=== PATIENT | female | born 1990 | race American Indian/Alaskan Native ===

== ENCOUNTER 2017-03-15 08:56 | Outpatient (CLI) | payer MEDICAID | END 2017-03-15 12:10 | disposition home or self-care (01) | LOC: LAB 08:56 → TRG 11:24 → LAB 12:10 | PROVIDERS: ATTEND Obstetrics & Gynecology | DX: O36.0130 Maternal care for anti-D [Rh] antibodies, third trimester, not applicable or unspecified (principal); Z3A.28 28 weeks gestation of pregnancy | CPT/HCPCS: 86850; 86900; 86901; 96372; J2790 ==

== ENCOUNTER 2017-06-08 10:38 | Inpatient (IN) | payer OTHER, MEDICAID ==
[2017-06-08] MEDS ORDERED: ePHEDrine SULFATE IV PRN ×2 (11:46→19:34)
[2017-06-08] MEDS ORDERED: MINERAL OIL PO PRN (11:46)
[2017-06-08] MEDS ORDERED: POLYCILLIN/NS 2 GM/100 ML 2 GM/100 ML BAG IV ONE (11:46)
[2017-06-08] MEDS ORDERED: BRETHINE SUB-Q PRN (11:46)
[2017-06-08] MEDS ORDERED: PITOCin/NS 20 UNIT/1000ML DRIP 20 UNITS/1,000 ML BAG IV SCH (12:00)
--- NOTE | 2017-06-08 12:06 | History and Physical Report ---
History of Present Illness Date of examination: 06/08/17 Date of admission: 06/08/17 11:39 Chief complaint: Contractions since yesterday History of present illness: Patient reports contractions since yesterday afternoon; she states this morning they became more regular every 5 minutes. Patient states her membranes were stripped in the office 3 days ago. Patient reports light pink spotting when she wipes. She denies bleeding or leaking of fluid. Patient reports active movement. Past History Past Medical History: no pertinent history Past Surgical History: no surgical history [employer] History: denies: herpes Family/Genetic History: hypertension Social history: single, lives with family, full code. denies: smoking, alcohol abuse, prescription drug abuse, IV drug use - Obstetrical History Expected Date of Delivery: 06/05/17 Actual Gestation: 40 Week(s) 3 Day(s) : 1 Para: 0 Hx # Term Pregnancies: 1 Number of Pregnancies: 0 Spontaneous Abortions: 0 Induced : 0 Number of Living Children: 0 Medications and Allergies Allergies Allergy/AdvReac Type Severity Reaction Status Date / Time No Known Allergies Allergy Unverified 03/15/17 11:29 Home Medications Medication Instructions Recorded Confirmed Last Taken Type Pnv No.95/Ferrous Fum/Folic AC 1 each PO DAILY 03/15/17 03/15/17 03/15/17 History [ Caplet] Active Meds: Active Medications Ephedrine Sulfate (Ephedrine Sulfate) 10 mg IV Q2M PRN PRN Reason: Hypotension Ampicillin Sodium (Polycillin/Ns 2 Gm/100 Ml) 2 gm in 100 mls @ 100 mls/hr IV ONCE ONE PRN Reason: Protocol Stop: 06/08/17 12:45 Lactated Ringer's (Lactated Ringers) 1,000 mls @ 125 mls/hr IV DIRECT VAL Oxytocin/Sodium Chloride (Pitocin/Ns 20 Unit/1000ml Drip) 20 units in 1,000 mls @ 125 mls/hr IV DIRECT VAL Ampicillin Sodium (Polycillin/Ns 1 Gm/50 Ml) 1 gm in 50 mls @ 100 mls/hr IV Q4HR VAL PRN Reason: Protocol Mineral Oil (Mineral Oil) 30 ml PO QHS PRN PRN Reason: Constipation Terbutaline Sulfate (Brethine) 0.25 mg SUB-Q ONCE PRN PRN Reason: Hyperstimulation/Hypertonicity Review of Systems All systems: negative (contractions) - Vital Signs Vital signs: Vital Signs Temp Pulse Resp BP Pulse Ox 98.6 F 105 H 22 124/77 98 06/08/17 11:05 06/08/17 11:05 06/08/17 11:05 06/08/17 11:05 06/08/17 11:05 Temp Pulse Resp BP Pulse Ox 98.6 F 103 H 22 124/77 98 06/08/17 11:05 06/08/17 11:25 06/08/17 11:05 06/08/17 11:11 06/08/17 11:25 - Physical Exam Abdomen: Positive: normal appearance, soft. Negative: distention, tenderness, guarding, rigidity Genitourinary (Female): Positive: normal external genitalia, normal perenium. Negative: perineal/vulvar lesions (no lesions seen on careful exam with bright light upon admission) Vagina: Positive: normal moisture Uterus: Positive: enlarged. Negative: tender Anus/Rectum: Positive: normal perianal skin Extremities: Positive: normal. Negative: tenderness, edema - Obstetrical FHR: category 1 Uterine Contraction Monitor Mode: External Cervical Dilatation: 4 Cervical Effacement Percentage: 70 station: -3 Uterine Contraction Frequency (min): q 4 min Uterine Contraction Pattern: Regular Uterine Contraction Intensity: Moderate Results All other labs normal. Assessment and Plan A: at 40 weeks, 3 days gestation. Labor. No records available. P: Admit. GBS prophylaxis. Anticipate .
[2017-06-08 12:12] LABS: Hematocrit 30.4 % (30.3-42.9); Hemoglobin 10.2 gm/dl (10.1-14.3); Mean Corpuscular HGB Conc 34 % (30-34); Mean Corpuscular Hemoglobin 27 pg (28-32); Mean Corpuscular Volume 80 fl (79-97); Platelet Count 247 K/mm3 (140-440); Red Blood Count 3.82 M/mm3 (3.65-5.03); Red Cell Distribution Width 17.3 % (13.2-15.2); White Blood Count 8.6 K/mm3 (4.5-11.0)
[2017-06-08] MEDS: LACTATED RINGERS 1,000 ML IV SCH ×3 (13:56→18:55)
--- NOTE | 2017-06-08 14:15 | Event Note ---
Date: 06/08/17 SVE 5.5/90/-4/BBOW. Reassuring heart rate tracing. Contractions every 2-3 minutes, moderate to palpation. Uterus palpates soft between contractions. Sat patient in squatting position to help with descent. Vital signs stable.
--- NOTE | 2017-06-08 16:09 | Event Note ---
Date: 06/08/17 At last cervical exam, cervix was 5-6 cm. Contractions have spaced out. Discussed with patient option to augment labor with Pitocin. Discussed with patient risks and benefits of Pitocin augmentation of labor; patient consented to Pitocin augmentation of labor. Pitocin orders put in.
[2017-06-08] MEDS: PITOCin/NS 30 UNIT/500ML 30 UNITS/500 ML BAG IV SCH ×2 (16:27→18:10)
[2017-06-08] MEDS: POLYCILLIN/NS 1 GM/50 ML 1 GM/50 ML BAG IV SCH ×2 (18:06→23:10)
[2017-06-08] MEDS ORDERED: NARCAN 2 MG/2 ML IV PRN (19:34)
--- NOTE | 2017-06-08 19:34 | Anesthesia Consultation ---
Anesthesia Consult and Med Hx Date of service: 06/08/17 - Airway Anesthetic Teeth Evaluation: Good, Chipped ROM Head & Neck: Adequate Mental/Hyoid Distance: Adequate Mallampati Class: Class II Intubation Access Assessment: Probably Good - Pulmonary Exam CTA: Yes - Cardiac Exam Cardiac Exam: RRR - Pre-Operative Health Status ASA Pre-Surgery Classification: ASA2 Proposed Anesthetic Plan: Epidural, Spinal - Pulmonary Hx Asthma: No COPD: No Hx Pneumonia: No - Cardiovascular System Hx Hypertension: No - Central Nervous System Hx Seizures: No Hx Psychiatric Problems: No - Endocrine Hx Renal Disease: No Hx End Stage Renal Disease: No Hx Hypothyroidism: No Hx Hyperthyroidism: No - Hematic Hx Anemia: No Hx Sickle Cell Disease: No - Other Systems Hx Alcohol Use: No Hx Obesity: Yes - Additional Comments Anesthesia Medical History Comments: IUP
[2017-06-08] MEDS ORDERED: fentaNYL-BUPIV 2 MCG/ML-0.125% 200 MCG/100 ML BAG EPIDURAL SCH (20:00)
--- NOTE | 2017-06-08 22:11 | Event Note ---
Date: 06/08/17 SVE 9/-4/BBOW. Consulted with Dr. Mukherjee re: cervical change with no change in station and Dr. Mukherjee came and examined patient also. Will get EFW by US.
--- NOTE | 2017-06-09 01:04 | Event Note ---
Date: 06/09/17 SROM with large amount of thin meconium stained fluid. Cervix 8/-4. Patient repositioned in right lateral position. Contractions every 2-3 minutes, moderate to palpation; uterus palpates soft between contractions. Patient has been repositioned in right lateral, left lateral, and squatting positions.
[2017-06-09] MEDS: LACTATED RINGERS 1,000 ML IV SCH (01:34)
[2017-06-09] MEDS ORDERED: REGLAN IV ONE (02:32)
[2017-06-09] MEDS ORDERED: BICITRA PO ONE (02:32)
[2017-06-09] MEDS ORDERED: EMLA TP PRN (02:32)
[2017-06-09] MEDS ORDERED: PEPCID IV ONE (02:32)
[2017-06-09] MEDS ORDERED: REGLAN ONE (02:38)
[2017-06-09] MEDS ORDERED: PITOCin/NS 20 UNIT/1000ML DRIP 20 UNITS/1,000 ML BAG IV SCH ×2 (03:00→05:00)
[2017-06-09] MEDS ORDERED: ANCEF/STERILE WATER 2 GM/20 ML 2 GM/20 ML SYRINGE IV NR (03:00)
[2017-06-09] MEDS ORDERED: LACTATED RINGERS 1,000 ML IV SCH (03:00)
[2017-06-09] MEDS ORDERED: XYLOCAINE MPF 2% ONE ×3 (03:21→03:39)
[2017-06-09] MEDS ORDERED: ANCEF IV ONE (03:30)
[2017-06-09] MEDS ORDERED: WATER FOR IRRIG STERILE IR ONE (03:30)
[2017-06-09] MEDS ORDERED: NACL 0.9% IR ONE (03:30)
[2017-06-09] MEDS ORDERED: VERSED ONE ×2 (03:41→04:08)
[2017-06-09] MEDS ORDERED: MORPHINE ONE (03:42)
[2017-06-09] MEDS ORDERED: SUBLIMAZE ONE (03:44)
[2017-06-09] MEDS ORDERED: DIPRIVAN 10 MG/ML IV ONE (03:46)
[2017-06-09] MEDS ORDERED: ZOFRAN ONE (04:07)
[2017-06-09] MEDS ORDERED: ANCEF ONE (04:15)
--- NOTE | 2017-06-09 04:37 | Operative Report ---
Operative Report Operative Report: DATE: 06/09/2017 PREOPERATIVE DIAGNOSIS: 26-year-old at 40+4 weeks, arrest of descent, morbid obesity POSTOP DIAGNOSIS: As Above NAME OF PROCEDURE: Primary low transverse section SURGEON: KINZA COOK MD HAND HOSE CUTTER: [] ANESTHESIA: Epidural EBL: 800 mL PATHOLOGY SPECIMEN: None URINE OUTPUT: 200 mL FINDINGS: Male Infant in cephalic presentation, time of was 03:47 AM, weight was 7 lbs. 11 oz. or 3488 grams, Apgars were 8 and 9, cervical extension of hysterotomy noted, significant subcutaneous tissue, normal uterus tubes and ovaries DESCRIPTION OF PROCEDURE: After informed consent, patient was taken to the operating room where she was prepped and draped in a sterile fashion. Pfannestial incision was performed 2 cm above the pubic symphysis. This was then carried down to the underlying rectus fascia which was scored in the midline. The fascial incision was extended laterally with the use of Feng scissors, anterior leaf was then grasped with Yomi's elevated dissected sharply and bluntly off the underlying rectus. In a similar fashion the inferior leaf was grasped elevated dissected sharply and bluntly off the underlying rectus. The rectus was in the midline and the peritoneal cavity was entered. After good visualization of the bladder the peritoneal layer was extended up and down; bladder blade was placed in the patient's pelvic cavity, bladder flap was created without difficulty. A hysterotomy incision was then performed with clear amniotic fluid noted. in cephalic presentation was delivered without difficulty in the usual manner; cord was clamped cut and was handed over to waiting NICU staff. The placenta was then delivered intact, the uterus was then exteriorized cleared of all clots and debris. Her hysterotomy incision was noted to have a cervical extension; this was repaired using 0 Vicryl on a CT1. Then the remainder of the hysterotomy was closed in a running locked fashion with 0 Vicryl on a CTX; using the same suture were able to imbricate the initial layer. The uterus was then returned to the patient's pelvic cavity; the peritoneal edges were grasped with hemostats and Monica's; irrigation was used to clear the gutters of all clots and debris. Tisseel hemostatic agent was applied copiously over the hysterotomy incision. The peritoneal layer was closed in a running fashion with 3-0 Vicryl; the rectus was reapproximated with a single [id number] stitch. The fascia was then closed in a running fashion with 0 Vicryl; the subcutaneous layer was reapproximated with a single [id number] stitch. The skin was then closed in a subcuticular manner with 4-0 Monocryl. She tolerated the procedure well lap and instrument counts were correct 2, she did receive 3 grams of Ancef prior to the procedure. She is transferred to PACU in stable condition.
[2017-06-09] MEDS ORDERED: TYLENOL PO PRN (04:38)
[2017-06-09] MEDS ORDERED: TUCKS PAD TP PRN (04:38)
[2017-06-09] MEDS ORDERED: TORADOL IV PRN (04:38)
[2017-06-09] MEDS ORDERED: ANUCORT-HC PR PRN (04:38)
[2017-06-09] MEDS ORDERED: ZOFRAN IV PRN (04:38)
[2017-06-09] MEDS ORDERED: NARCAN 0.4 MG/1 ML IV PRN (04:38)
[2017-06-09] MEDS ORDERED: DEMEROL ONE (04:47)
[2017-06-09] MEDS ORDERED: DILAUDID IV PRN ×2 (04:51→04:52)
--- NOTE | 2017-06-09 04:51 | Post Anesthesia Evaluation ---
- Post Anesthesia Evaluation Patient Participated: Yes Airway Patent: Yes Stable Respiratory Function: Yes Nausea/Vomiting: No Temp > 96.8F: Yes Pain Manageable: Yes Adequeate Hydration: Yes Anesthesia Complications: No Block Receding Appropriately: Yes Patient on Ventilator: No
[2017-06-09] MEDS ORDERED: BENADRYL IV PRN (04:52)
[2017-06-09] MEDS ORDERED: SODIUM CHLORIDE FLUSH SYRINGE 10 ML IV PRN (05:00)
[2017-06-09] MEDS: D5LR 1,000 ML IV SCH ×2 (05:39→12:35)
[2017-06-09] MEDS: TORADOL IV PRN ×3 (08:27→23:07)
[2017-06-09 09:33] LABS: Basophils % (Auto) 0.2 % (0.0-1.8); Eosinophils % (Auto) 0.1 % (0.0-4.3); Hematocrit 26.6 % (30.3-42.9); Hemoglobin 8.8 gm/dl (10.1-14.3); Mean Corpuscular HGB Conc 33 % (30-34); Mean Corpuscular Hemoglobin 27 pg (28-32); Mean Corpuscular Volume 80 fl (79-97); Platelet Count 202 K/mm3 (140-440); Red Blood Count 3.32 M/mm3 (3.65-5.03); White Blood Count 10.3 K/mm3 (4.5-11.0)
--- NOTE | 2017-06-09 09:42 | Ultrasound Report ---
History: EFW and presentation. Findings: Gestation: Single Position: Cephalic Amniotic Fluid: ERIKA = 12.3 cm Placenta: Fundal Placental Grade: 2 Heart Rate: 150 BPM anatomical survey not evaluated. BPD: 9.1 cm = 37 w 0 d HC: 33.2 cm = 37 w 6 d AC: 34.2 cm = 38 w 1 d FL: 7.4 cm = 38 w 0 d HC/AC Ratio: 0.97 Estimated Weight: 3356 grams LMP: Uncertain US Gest. Age = 37 w 5 d EDC: 06/24/17
[2017-06-09 17:14] LABS: Hematocrit 26.3 % (30.3-42.9); Hemoglobin 8.4 gm/dl (10.1-14.3)
[2017-06-09] MEDS: PERCOCET 5/325 PO PRN (23:07)
[2017-06-09] MEDS: MYLICON PO PRN (23:11)
[2017-06-09] MEDS: MILK OF MAGNESIA PO PRN (23:11)
[2017-06-10] MEDS: PERCOCET 5/325 PO PRN ×3 (06:33→21:59)
[2017-06-10] MEDS: MOTRIN PO PRN ×3 (06:33→21:59)
[2017-06-10] MEDS: MYLICON PO PRN (07:45)
[2017-06-10] MEDS: PRENATAL VITAMIN PO SCH (08:57)
[2017-06-10] MEDS: FEOSOL PO SCH (08:57)
[2017-06-10] MEDS: MILK OF MAGNESIA PO PRN (08:57)
--- NOTE | 2017-06-10 11:05 | Progress Note ---
Assessment and Plan A: POD 2 - stable Asymptomatic Anemia P: Continue current management Subjective - Subjective Date of service: 06/10/17 Principal diagnosis: Primary Low Transverse Patient reports: appetite normal, voiding normally, pain well controlled, flatus , ambulating normally : doing well, nursing well, bottle feeding Objective - Vital Signs Latest vital signs: Vital Signs Temp Pulse Resp BP 06/10/17 07:35 98.2 F 68 22 111/70 06/10/17 00:00 98.6 F 76 20 123/72 06/09/17 17:16 98.2 F 90 18 115/73 06/09/17 11:46 98.6 F 75 18 106/60 Intake and Output 06/09/17 06/10/17 06/10/17 23:59 07:59 15:59 Intake Total 1730 200 120 Output Total 1300 1400 Balance 430 -1200 120 Intake: IV 1250 D5lr 1,000 ml @ 125 mls/ 1000 hr IV DIRECT VAL Rx#: [id number] Right Hand 250 Oral 480 200 120 Output: Urine 1300 1400 Indwelling Catheter 500 Void 800 1400 Other: Total, Intake Amount 480 200 120 Total, Output Amount 800 800 # Voids Void 1 1 1 - Exam Breasts: Present: deferred Cardiovascular: Present: Regular rate, Normal S1, Normal S2 Lungs: Present: Clear to auscultation, Normal air movement Abdomen: Present: normal appearance, soft Vulva: both: normal Uterus: Present: normal, firm, fundal height below umbilicus Extremities: Present: normal Deep Tendon Reflex Grade: Normal +2 Incision: Present: normal, dry, dressed - Labs Labs: Abnormal lab results 06/09/17 Range/Units 16:33 Hgb 8.4 L (10.1-14.3) gm/dl Hct 26.3 L (30.3-42.9) %
--- NOTE | 2017-06-10 13:13 | Progress Note ---
Subjective Date of service: 06/10/17 Principal diagnosis: Primary Low Transverse Interval history: 1st POD after Patient is in the bed, comfortable. Pain is well controlled with pain meds. Ambulated well. No residual neurological deficit. No anesthesia complications Objective - Constitutional Vitals: Vital Signs - 12hr 06/10/17 07:35 Temperature 98.2 F Pulse Rate 68 Respiratory 22 Rate Blood Pressure 111/70 [Left] - Labs CBC & Chem 7: 06/09/17 16:33 Labs: Abnormal lab results 06/09/17 Range/Units 16:33 Hgb 8.4 L (10.1-14.3) gm/dl Hct 26.3 L (30.3-42.9) %
[2017-06-11] MEDS: PERCOCET 5/325 PO PRN ×3 (05:21→17:31)
[2017-06-11] MEDS: MOTRIN PO PRN ×3 (05:21→17:31)
[2017-06-11] MEDS: PRENATAL VITAMIN PO SCH (11:13)
[2017-06-11] MEDS: FEOSOL PO SCH (11:13)
--- NOTE | 2017-06-11 14:54 | Progress Note ---
Assessment and Plan - Patient Problems (1) 40 weeks gestation of Current Visit: Yes Status: Acute (2) delivery delivered Current Visit: Yes Status: Acute Plan to address problem: Routine post op care. Wound care after discharge discussed with patient. She is to f/U in 1 week for incision check. (3) Anemia Current Visit: Yes Status: Acute Qualifiers: Iron deficiency anemia type: chronic blood loss Plan to address problem: Patient is asymptomatic. Iron sulfate given. Precautions were given to return to hospital if she develops any dizziness or palpitation. (4) Arrest of descent, delivered, current hospitalization Current Visit: Yes Status: Acute Subjective - Subjective Date of service: 06/11/17 Principal diagnosis: Primary Low Transverse Interval history: Patient is S/P Primary LTCS, POD #2. She denies any complaint. She is tolerating regular diet well. She is passing flatus. She is ambulating without any complaint. She desires to go home today. Objective - Vital Signs Latest vital signs: Vital Signs Temp Pulse Resp BP Pulse Ox 06/11/17 08:12 97.6 F 64 18 112/62 06/10/17 22:01 97.9 F 75 18 105/47 99 06/10/17 16:52 97.8 F 80 20 112/61 Intake and Output 06/10/17 06/11/17 06/11/17 23:59 07:59 15:59 Intake Total 240 480 360 Balance 240 480 360 Intake: Oral 240 480 360 Other: Total, Intake Amount 240 480 360 # Voids Void 1 3 1 # Bowel Movements 0 - Exam Cardiovascular: Present: Normal S1, Normal S2 Lungs: Present: Clear to auscultation Deep Tendon Reflex Grade: Normal +2
--- NOTE | 2017-06-11 14:59 | Discharge Summary ---
Providers - Providers Date of Admission: 06/08/17 11:39 Attending physician: LA GUERRERO MD Primary care physician: LA GUERRERO MD Hospitalization Delivery: Procedure: section Discharge diagnosis: IUP at term delivered baby: male Condition at discharge: Stable Disposition: DC-01 TO HOME OR SELFCARE - Discharge Diagnoses (1) 40 weeks gestation of Status: Acute (2) delivery delivered Status: Acute (3) Anemia Status: Acute Qualifiers: Iron deficiency anemia type: chronic blood loss (4) Arrest of descent, delivered, current hospitalization Status: Acute Plan - Discharge Medications Prescriptions: Ibuprofen [Motrin 600 MG tab] 600 mg PO Q8H PRN #30 tablet PRN Reason: Pain Multivitamin with Iron [Multivitamins with Iron] 1 each PO DAILY #30 tablet oxyCODONE /ACETAMINOPHEN [Percocet 5/325] 1 tab PO Q6HR PRN #30 tablet PRN Reason: Pain - Provider Discharge Summary Activity: no sex for 6 weeks, no heavy lifting 4 weeks, no strenuous exercise Diet: routine Instructions: routine Additional instructions: [] Smoking cessation referral if applicable(refer to patient education folder for contact #) [] Refer to [facility] Booklet Call your doctor immediately for: * Fever > 100.5 * Heavy vaginal bleeding ( >1 pad per hour) * Severe persistent headache * Shortness of breath * Reddened, hot, painful area to leg or breast * Drainage or odor from incision. * Keep incision clean and dry at all times and follow doctor's instructions regarding bathing/showering - Follow up plan Follow up: LA GUERRERO MD [Primary Care Provider] - 7 Days
[2017-06-11 16:43] VITALS: BP 137/72
== END 2017-06-11 17:37 | disposition home or self-care (01) | DRG 765 ==
LOC: TRG 10:38 → LD 11:39 → OB 06-09 06:14
PROVIDERS: ADMIT Obstetrics & Gynecology; ATTEND Obstetrics & Gynecology
PROC: 10D00Z1 Extraction of Products of Conception, Low, Open Approach (ICD-10-PCS; principal; 2017-06-09)
PROC: 3E0334Z Introduction of Serum, Toxoid and Vaccine into Peripheral Vein, Percutaneous Approach (ICD-10-PCS; 2017-06-09)
DX: O62.1 Secondary uterine inertia (principal); R71.0 Precipitous drop in hematocrit; O99.214 Obesity complicating childbirth; O99.02 Anemia complicating childbirth; O75.89 Other specified complications of labor and delivery; E66.01 Morbid (severe) obesity due to excess calories; Z3A.40 40 weeks gestation of pregnancy; Z37.0 Single live birth; Z68.39 Body mass index [BMI] 39.0-39.9, adult; Z71.3 Dietary counseling and surveillance; Z82.49 Family history of ischemic heart disease and other diseases of the circulatory system; O77.0 Labor and delivery complicated by meconium in amniotic fluid
CPT/HCPCS: 36415; 76816; 85014; 85018; 85025; 85027; 85461; 86850; 86900; 86901; 99211; G0463; J0290; J0690; J1885; J2175; J2250; J2270; J2405; J2590; J2704; J2765; J2790; J3010; J7120; J7121